=== PATIENT | male | born 1945 | race Caucasian/White ===

== ENCOUNTER → 2018-01-20 07:46 | Outpatient (CLI) | payer MEDICARE, SELFPAY ==
[2018-01-20 08:37] LABS: Hematocrit 45.2 % (41-53); Hemoglobin 15.2 g/dL (13.5-17.5); Mean Corpuscular HGB Conc 33.7 % (30-36); Mean Corpuscular Volume 88.9 fL (80-100); Platelet Count 174 X10^3/uL (150-400); Red Blood Cell Count 5.08 X10^6/uL (4.5-5.9); Red Cell Distribution Width 14.2 % (11.6-14.8); White Blood Cell Count 4.5 X10^3/uL (4.5-11.0)
[2018-01-20 08:59] LABS: Alanine Aminotransferase 34 IU/L (21-72); Albumin 4.2 g/dL (3.5-5.0); Albumin Globulin Ratio 1.4 (1.0-2.8); Alkaline Phosphatase 47 U/L (38-126); Aspartate Aminotransferase 37 IU/L (17-59); BUN Creatinine Ratio 22.7 (6-22); Bilirubin Total 1.2 mg/dL (0.2-1.3); Blood Urea Nitrogen 25 mg/dL (9-20); Calcium 9.4 mg/dL (8.4-10.2); Carbon Dioxide 30 mmol/L (22-32); Chloride 105 mmol/L (98-107); Cholesterol 165 mg/dL (140-199); Estimated Glomerular Filt Rate > 60.0 mL/min (>60); Glucose 87 mg/dL (80-110); HDL Cholesterol 51 mg/dL (40-60); HEMOLYSIS < 15 (0-50); LDL Cholesterol Calculated 88 mg/dL (<100); Potassium 4.4 mmol/L (3.4-5.1); Sodium 144 mmol/L (137-145); Total Protein 7.2 g/dL (6.3-8.2); Triglycerides 130 mg/dL (35-150)
[2018-01-20 09:44] LABS: Vitamin D 25 Hydroxy (D3) 40.4 ng/mL (30.0-100.0)
== END ==
PROVIDERS: PCP Student in an Organized Health Care Education/Training Program; Visit Provider Student in an Organized Health Care Education/Training Program
DX: I25.10 Atherosclerotic heart disease of native coronary artery without angina pectoris (principal); E55.9 Vitamin D deficiency, unspecified; Z79.899 Other long term (current) drug therapy
CPT/HCPCS: 36415; 80053; 80061; 82306; 85027

== ENCOUNTER → 2018-10-16 09:20 | Outpatient (CLI) | payer MEDICARE, SELFPAY ==
--- NOTE | 2018-11-04 08:32 | PM.CARDMON.1 ---
Project Manager Industrial Report Referral & Results Date Patient Seen: 10/16/18 Requesting provider: Mary Grace Flynn Indication: Atrial fibrillation Duration of monitoring (days): 7 Diary information: There 5 patient diary entries associated with sinus rhythm, PACs and PVCs as well as supraventricular tachycardia There 6 patient triggered events associated with sinus rhythm, PACs, PVCs, and SVT Data: Minimum heart rate identified was 38 beats per minute at 02:35 on 10/22/2018 Maximum sinus heart rate was 129 beats per minute at 16:34 on 10/20/2018 Maximum overall heart rate was 187 beats per minute at 14:35 on 10/19/2018 during a 9 beat run of SVT Less than 1% of identified beats or either ventricular supraventricular ectopic in origin Patient at 36 runs of a supraventricular tachycardia the longest lasting 52 seconds at a rate of 146 beats per minute Rare ventricular bigeminy and ventricular trigeminy were noted as well, less than 10 seconds in duration No significant pauses Impression: rare SVT as above Otherwise essentially unremarkable 7 day heart monitor
== END ==
PROVIDERS: PCP Student in an Organized Health Care Education/Training Program; Visit Provider Hospitalist
DX: I48.91 Unspecified atrial fibrillation (principal)
CPT/HCPCS: 0296T; 0298T

== ENCOUNTER → 2019-02-10 14:38 | Outpatient (CLI) | payer MEDICARE, SELFPAY ==
--- NOTE | 2019-02-10 | DI.ECHO.S_ITS ---
[facility] [facility] +---------+ [facility] +---------+ : : [address] : [address] : : : : [id number] : : : : Phone: [phone]+ Echocardiogram Report + + :Name: PAULINA JAMESON Study Date: 02/10/2019 Height: 67 in : :[facility] Weight: 179 lb : : Gender: Male BSA: 1.9 m2 : :: 1945 Age: 73 yrs BP: 110/65 mmHg: :Reason For Study: CAD : : Performed By: Henrique Schulz : :Referring: DILCIA VU : + + Interpretation Summary 1) Normal left ventricular size with low normal systolic function (EF 50-55%). 2) Basal to mid inferolateral wall and basal to mid anterolateral wall are akinetic. The inferior wall is hypokinetic. 3) Normal right ventricular size and function. 4) The left atrium is severely dilated. 5) No significant valvular abnormalities. 6) No prior Echo available for comparison. Procedure: A two-dimensional transthoracic echocardiogram with color flow and Doppler was performed. The study quality was technically adequate. There is no prior echocardiogram noted for this patient. The patient was in normal sinus rhythm during the exam. Left Ventricle: The left ventricle is normal in size. There is normal left ventricular wall thickness. The ejection fraction is estimated to be 50-55%. Basal to mid inferolateral wall and basal to mid anterolateral wall are akinetic. The inferior wall is hypokinetic. Right Ventricle: The right ventricle is normal in size and function. Atria: The left atrium is severely dilated. Right atrial size is normal. The interatrial septum is intact with no evidence for an atrial septal defect. Mitral Valve: The mitral valve is normal in structure and function. There is mild mitral regurgitation. Aortic Valve: The aortic valve is trileaflet. There is discrete nodular thickening of the non- coronary cusp. The aortic valve opens well. There is no aortic valve stenosis. No aortic regurgitation is present. Tricuspid Valve: The tricuspid valve is normal in structure and function. There is mild tricuspid regurgitation. The right ventricular systolic pressure is estimated to be at least 28 mmHg based on an estimated right atrial pressure of 3 mm Hg. Pulmonic Valve: The pulmonic valve is normal in structure and function. There is trace pulmonic regurgitation. Great Vessels: The aortic root is normal size. The dimensions of the ascending aorta are normal. The pulmonary artery is normal size. The IVC is of normal diameter and collapses greater than 50% with a sniff. This suggests a low right atrial pressure of 3 mm Hg. Pericardium/ Pleura There is no pericardial effusion. There is no pleural effusion. MMode/2D Measurements & Calculations LVIDd: 4.4 cm LVOT diam: 2.2 cm LVIDs: 2.9 cm Ao root diam: 3.1 cm FS: 35.3 % Aortic Jxn: 2.4 cm EPSS: 0.94 cm asc Aorta Diam: 3.1 cm IVSd: 0.77 cm Ao Arch Diam (Prox Trans): 2.6 cm LVPWd: 0.52 cm LV field. diameter/BSA (cm/m^2): 2.3 LV sys. diameter/BSA (cm/m^2): 1.5 LA dimension: 3.5 cm RA long axis: 4.6 cm LA A2 area: 29.6 cm2 RA area: 17.0 cm2 LA A4 area: 24.8 cm2 RA vol: 53.2 ml LA length (vol): 5.8 cm RA : 27.6 ml/m2 LA vol: 107.8 ml IVC diam: 1.4 cm LA vol index: 55.9 ml/m2 RVD1 (basal): 3.7 cm RVD2 (mid): 3.9 cm Doppler Measurements & Calculations Ao V2 max: 127.3 cm/sec LVOT Max Ty: 113.3 cm/sec Ao V2 mean: 89.4 cm/sec LV V1 max P.1 mmHg Ao max P.5 mmHg LV V1 VTI: 27.3 cm Ao mean P.5 mmHg LORIE(I,D): 3.3 cm2 Ao V2 VTI: 30.7 cm LORIE(V,D): 3.3 cm2 sev ratio: 0.89 LORIE indexed to BSA (cm^2/m^2): 1.7 MV E max ty: 77.8 cm/sec TR max ty: 248.6 cm/sec MV A max ty: 62.4 cm/sec TR max P.7 mmHg MV E/A: 1.2 PA V2 max: 67.4 cm/sec Med Peak E' Ty: 4.1 cm/sec PA V2 mean: 52.1 cm/sec E/E' med: 18.9 PA mean P.2 mmHg Lat Peak E' Ty: 7.5 cm/sec PA pr(Accel): 24.1 mmHg E/E' lat: 10.3 PA Accel Time: 0.12 sec E/e' average: 14.6 MV dec time: 0.17 sec SVLVOT): 100.5 ml Reading Physician:04:12 PM
== END ==
PROVIDERS: Family Provider Student in an Organized Health Care Education/Training Program; PCP Student in an Organized Health Care Education/Training Program; Visit Provider Internal Medicine Cardiovascular Disease
DX: I08.1 Rheumatic disorders of both mitral and tricuspid valves (principal); I25.10 Atherosclerotic heart disease of native coronary artery without angina pectoris
CPT/HCPCS: 93306

== ENCOUNTER → 2019-02-13 07:36 | Outpatient (CLI) | payer MEDICARE, SELFPAY ==
[2019-02-13 08:14] LABS: Add Manual Diff / Slide Review NO; Basophils Absolute Auto 0 /uL (0-100); Basophils Percent Auto 0.1 % (0-2); Eosinophils Absolute Auto 0 /uL (0-450); Hematocrit 42.7 % (41-53); Hemoglobin 14.4 g/dL (13.5-17.5); Lymphocytes Absolute Auto 1300 /uL (1100-4500); Lymphocytes Percent Auto 16.9 % (25-40); Mean Corpuscular HGB Conc 33.8 % (30-36); Mean Corpuscular Hemoglobin 30.2 PG (26-34); Mean Corpuscular Volume 89.4 fL (80-100); Monocytes Absolute Auto 600 /uL (0-900); Monocytes Percent Auto 7.7 % (3-14); Neutrophils Absolute Auto 6000 /uL (1500-7000); Neutrophils Percent Auto 75.3 % (50-75); Platelet Count 203 X10^3/uL (150-400); Red Blood Cell Count 4.78 X10^6/uL (4.5-5.9); Red Cell Distribution Width 14.2 % (11.6-14.8)
[2019-02-13 08:25] LABS: Blood Urea Nitrogen 23 mg/dL (9-20); Calcium 9.7 mg/dL (8.4-10.2); Carbon Dioxide 28 mmol/L (22-32); Chloride 104 mmol/L (98-107); Cholesterol 152 mg/dL (140-199); Estimated Glomerular Filt Rate > 60.0 mL/min (>60); Glucose 106 mg/dL (80-110); HDL Cholesterol 58 mg/dL (40-60); HEMOLYSIS < 15 (0-50); LDL Cholesterol Calculated 79 mg/dL (<100); Potassium 4.4 mmol/L (3.4-5.1); Sodium 140 mmol/L (137-145); Triglycerides 75 mg/dL (35-150)
== END ==
PROVIDERS: PCP Student in an Organized Health Care Education/Training Program; Visit Provider Internal Medicine Cardiovascular Disease
DX: E78.5 Hyperlipidemia, unspecified (principal); I25.10 Atherosclerotic heart disease of native coronary artery without angina pectoris
CPT/HCPCS: 36415; 80048; 80061; 85025

== ENCOUNTER → 2019-05-30 15:04 | Outpatient (CLI) | payer MEDICARE, SELFPAY ==
[2019-05-30 15:45] LABS: Influenza A - CEPHEID Flu A NEGATIVE (NEGATIVE); Influenza B - CEPHEID Flu B NEGATIVE (NEGATIVE)
== END ==
PROVIDERS: PCP Student in an Organized Health Care Education/Training Program; Visit Provider Physician Assistant
DX: R68.89 Other general symptoms and signs (principal)
CPT/HCPCS: 87502

== ENCOUNTER → 2019-05-30 16:01 | Outpatient (CLI) | payer MEDICARE, SELFPAY ==
--- NOTE | 2019-05-30 16:03 | DI.RAD.S_ITS ---
PROCEDURE: XR CHEST 2V INDICATIONS: cough TECHNIQUE: 2 views of the chest were acquired. COMPARISON: None. FINDINGS: Surgical changes and devices: Sternotomy wires are seen. Mediastinal clips are seen. Lungs and pleura: Lungs are clear. No pleural effusions or pneumothorax. Mediastinum: Tortuous Bones and chest wall: No suspicious bony abnormalities. Age-appropriate bony degenerative changes are seen. Remote right lateral rib fractures are seen. Soft tissues appear unremarkable. IMPRESSION: No acute abnormality is seen. No focal infiltrates. Postoperative and degenerative changes are seen. Dictated by: Chuck Spann M.D. on 05/30/2019 at 15:14 Approved by: Chuck Spann M.D. on 05/30/2019 at 15:15
== END ==
PROVIDERS: PCP Student in an Organized Health Care Education/Training Program; Referring Provider Physician Assistant; Visit Provider Physician Assistant
DX: R05 Cough (principal); R68.89 Other general symptoms and signs
CPT/HCPCS: 71046; 87502

== ENCOUNTER → 2020-03-07 07:01 | Outpatient (CLI) | payer MEDICARE, SELFPAY ==
[2020-03-07 08:57] LABS: Alanine Aminotransferase 22 IU/L (<50); Albumin 3.8 g/dL (3.5-5.0); Albumin Globulin Ratio 1.5 (1.0-2.8); Alkaline Phosphatase 43 U/L (38-126); Aspartate Aminotransferase 29 IU/L (17-59); BUN Creatinine Ratio 17.5 (6-22); Bilirubin Total 1.1 mg/dL (0.2-1.3); Blood Urea Nitrogen 20 mg/dL (9-20); Calcium 9.1 mg/dL (8.4-10.2); Carbon Dioxide 31 mmol/L (22-32); Chloride 104 mmol/L (98-107); Cholesterol 154 mg/dL (140-199); Estimated Glomerular Filt Rate > 60.0 mL/min (>60); Globulin 2.6 g/dL (1.7-4.1); Glucose 85 mg/dL (80-110); HDL Cholesterol 64 mg/dL (40-60); HEMOLYSIS < 15 (0-50); LDL Cholesterol Calculated 56 mg/dL (<100); Potassium 4.5 mmol/L (3.4-5.1); Sodium 137 mmol/L (137-145); Total Protein 6.4 g/dL (6.3-8.2); Triglycerides 168 mg/dL (35-150); Uric Acid 7.8 mg/dL (3.5-8.5)
[2020-03-07 09:28] LABS: Prostate Specific Antigen Scrn 2.38 ng/mL (0.1-4.0)
== END ==
PROVIDERS: PCP Internal Medicine; Referring Provider Internal Medicine; Visit Provider Internal Medicine
DX: E78.2 Mixed hyperlipidemia (principal); I25.10 Atherosclerotic heart disease of native coronary artery without angina pectoris; I48.0 Paroxysmal atrial fibrillation; M10.9 Gout, unspecified; Z12.5 Encounter for screening for malignant neoplasm of prostate
CPT/HCPCS: 36415; 80053; 80061; 84550; G0103

== ENCOUNTER → 2020-04-25 12:37 | Outpatient (CLI) | payer MEDICARE, SELFPAY ==
--- NOTE | 2020-04-25 12:40 | DI.RAD.S_ITS ---
PROCEDURE: FL BARIUM SWALLOW INDICATIONS: Dysphagia COMPARISON: None. FINDINGS: Function: There is normal esophageal peristalsis. There was mild observed spontaneous and elicited gastroesophageal reflux. There is significantly delayed transit of a calibrated barium tablet through the esophagus into the stomach, with persistence of the 13 mm calibrated barium tablet above the area of the distal esophageal stricture 4/5 minutes.. Morphology: Air-contrast images demonstrate normal mucosal morphology. Single contrast views show no esophageal strictures, extrinsic mass effects, or diverticula. Limited images of the stomach demonstrate normal appearance. 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 The 13 mm barium tablet administered at the termination of the procedure persisted over 5 minutes in that position despite adding water to assist in transit of the tablet into the gastric lumen. Mild observed gastroesophageal reflux. Dictated by: Nawaf Avilez M.D. on 04/25/2020 at 14:24 Approved by: Nawaf Avilez M.D. on 04/25/2020 at 14:26
== END ==
PROVIDERS: PCP Internal Medicine; Referring Provider Internal Medicine; Visit Provider Internal Medicine
DX: R13.10 Dysphagia, unspecified (principal); K21.9 Gastro-esophageal reflux disease without esophagitis
CPT/HCPCS: 74220

== ENCOUNTER → 2021-01-31 16:09 | Outpatient (CLI) | payer MEDICARE, SELFPAY ==
[2021-01-31 17:42] LABS: Influenza A - CEPHEID Flu A NEGATIVE (NEGATIVE); Influenza B - CEPHEID Flu B NEGATIVE (NEGATIVE)
[2021-01-31 17:46] LABS: COVID19 -Nasal RAPID POSITIVE (Negative)
== END ==
PROVIDERS: PCP Internal Medicine; Visit Provider Nurse Practitioner Family
DX: U07.1 COVID-19 (principal); J06.9 Acute upper respiratory infection, unspecified
CPT/HCPCS: 87502; 87635

== ENCOUNTER → 2021-01-31 16:43 | Outpatient (CLI) | payer MEDICARE, SELFPAY ==
--- NOTE | 2021-01-31 16:46 | DI.RAD.S_ITS ---
PROCEDURE: XR CHEST 2V INDICATIONS: cough TECHNIQUE: 2 views of the chest were acquired. COMPARISON: [facility], CR, XR CHEST 2V, 05/30/2019, 15:58. FINDINGS: Surgical changes and devices: Median sternotomy. Lungs and pleura: Moderate airspace opacity within the right mid/upper lung. No pleural effusions or pneumothorax. Mediastinum: Mediastinal contours are normal. Heart size is normal. Bones and chest wall: No suspicious bony abnormalities. Soft tissues appear unremarkable. IMPRESSION: Right lung pneumonia. Continued plain film surveillance is recommended to ensure resolution, and to exclude underlying or central malignancy. Dictated by: Mona Castro M.D. on 01/31/2021 at 16:59 Approved by: Mona Castro M.D. on 01/31/2021 at 17:00
== END ==
PROVIDERS: PCP Internal Medicine; Referring Provider Nurse Practitioner Family; Visit Provider Nurse Practitioner Family
DX: U07.1 COVID-19 (principal); J12.82 Pneumonia due to coronavirus disease 2019
CPT/HCPCS: 71046; 87502; 87635

== ENCOUNTER → 2022-03-08 16:16 | Outpatient (CLI) | payer MEDICARE, SELFPAY ==
--- NOTE | 2022-03-08 16:18 | DI.RAD.S_ITS ---
PROCEDURE: XR HIP W PEL IF DONE LT 2V INDICATIONS: left hip pain TECHNIQUE: AP pelvis with lateral view(s) of the left hip(s). COMPARISON: None. FINDINGS: Bones: No fractures or dislocations. Pelvic ring appears intact. No suspicious bony lesions. Moderate bilateral axial joint space narrowing with minimal periarticular osteophyte formation. Degenerative disc and facet disease involves the inferior lumbar spine. Soft tissues: The visualized bowel gas pattern is normal. No suspicious soft tissue calcifications. Left inguinal surgical clips. IMPRESSION: Moderate symmetric hip joint degeneration. Dictated by: Spike Martinez [facility] Interpreted: Shanti Allen MD on 03/08/2022 at 16:33 Transcribed by: JUSTINE on 03/08/2022 at 16:34 Approved by: Shanti Allen M.D. on 03/08/2022 at 17:33
--- NOTE | 2022-03-08 16:18 | DI.RAD.S_ITS ---
PROCEDURE: XR CHEST 2V INDICATIONS: cough TECHNIQUE: 2 views of the chest were acquired. COMPARISON: [facility], CR, XR CHEST 2V, 01/31/2021, 16:41. FINDINGS: Surgical changes and devices: Post median sternotomy. Postsurgical changes of the proximal right humerus unchanged. Surgical anchor involves the left humeral head. Lungs and pleura: Lungs are clear. Interstitium appears prominent similar prior examination. No pleural effusions or pneumothorax. Mediastinum: Mediastinal contours are normal. Heart size is normal. Bones and chest wall: Several healed right posterior lateral rib fractures redemonstrated. No suspicious bony abnormalities. Soft tissues appear unremarkable. IMPRESSION: 1. Interstitial prominence which appears chronic and no acute consolidation is seen. Dictated by: Spike Martinez [facility] Interpreted: Shanti Allen MD on 03/08/2022 at 16:32 Transcribed by: JUSTINE on 03/08/2022 at 16:33 Approved by: Shanti Allen M.D. on 03/08/2022 at 17:33
== END ==
PROVIDERS: PCP Internal Medicine; Referring Provider Internal Medicine; Visit Provider Internal Medicine
DX: R05.9 Cough, unspecified (principal); M25.552 Pain in left hip; M16.12 Unilateral primary osteoarthritis, left hip
CPT/HCPCS: 71046; 73502

== ENCOUNTER → 2022-03-09 06:49 | Outpatient (CLI) | payer MEDICARE, SELFPAY ==
[2022-03-09 09:54] LABS: Alanine Aminotransferase 29 IU/L (<50); Albumin 3.9 g/dL (3.5-5.0); Albumin Globulin Ratio 1.3 (1.0-2.8); Alkaline Phosphatase 51 U/L (38-126); Aspartate Aminotransferase 32 IU/L (17-59); BUN Creatinine Ratio 16.1 (6-22); Bilirubin Total 0.6 mg/dL (0.2-1.3); Blood Urea Nitrogen 19 mg/dL (9-20); Calcium 8.9 mg/dL (8.4-10.2); Carbon Dioxide 26 mmol/L (22-32); Chloride 102 mmol/L (98-107); Estimated Glomerular Filt Rate > 60 mL/min (>60); Glucose 98 mg/dL (80-110); HEMOLYSIS < 15 (0-50); Potassium 4.3 mmol/L (3.4-5.1); Sodium 137 mmol/L (137-145); Total Protein 6.9 g/dL (6.3-8.2)
== END ==
PROVIDERS: PCP Internal Medicine; Referring Provider Internal Medicine; Visit Provider Internal Medicine
DX: I10 Essential (primary) hypertension (principal); M10.9 Gout, unspecified
CPT/HCPCS: 36415; 80053; 84550

== ENCOUNTER → 2022-03-29 07:29 | Outpatient (CLI) | payer MEDICARE, SELFPAY ==
[2022-03-29 08:10] LABS: COVID19 -Nasal RAPID Negative (Negative)
== END ==
PROVIDERS: PCP Internal Medicine; Referring Provider Internal Medicine; Visit Provider Internal Medicine
DX: Z20.822 Contact with and (suspected) exposure to COVID-19 (principal)
CPT/HCPCS: 87635; C9803

== ENCOUNTER → 2022-03-29 07:31 | Outpatient (CLI) | payer MEDICARE, SELFPAY ==
--- NOTE | 2022-04-04 10:56 | PM.PFT.1 ---
Pulmonary Function Test Referral & Results Date Patient Seen: 03/29/22 Requesting provider: Devante Mcgill Results: The spirometry demonstrates an FVC of 3.30 L which is 89% of predicted. The FEV1 was measured at 2.62 L which is 99% of predicted. The FEV1/FVC ratio was 79 which is 110% of predicted. Following the administration of bronchodilator there was a 23% improvement in FEF 25-75%. Lung volumes show an SVC of 3.29 L which is 81% of predicted. The diffusing capacity was measured at 14.75 which is 52% of predicted. No hemoglobin value was provided, so no correction for potential anemia could be made, if appropriate. The maximum voluntary ventilation was normal Interpretation: This study demonstrates probably normal spirometry. There may be a minimal reduction in lung volumes suggesting minimal restrictive lung disease and there is evidence of improvement in small airway flow after bronchodilator although forced spirometry is otherwise normal There is a moderate reduction diffusing capacity suggesting disease at the capillary alveolar level Clinical correlation suggested
== END ==
PROVIDERS: PCP Internal Medicine; Referring Provider Internal Medicine; Visit Provider Internal Medicine
DX: R05.8 Other specified cough (principal); J98.8 Other specified respiratory disorders; Z20.822 Contact with and (suspected) exposure to COVID-19
CPT/HCPCS: 87635; 94060; 94726; 94729; C9803

== ENCOUNTER → 2022-04-03 08:58 | Outpatient (CLI) | payer MEDICARE, SELFPAY | PROVIDERS: PCP Internal Medicine; Referring Provider Physical Medicine & Rehabilitation; Visit Provider Physical Medicine & Rehabilitation | DX: M48.062 Spinal stenosis, lumbar region with neurogenic claudication (principal); Z53.8 Procedure and treatment not carried out for other reasons ==

== ENCOUNTER → 2022-04-12 06:14 | Outpatient (CLI) | payer MEDICARE, SELFPAY ==
--- NOTE | 2022-04-12 06:16 | DI.ECHO.S_ITS ---
[place] [facility]---------+ [facility] +---------+ : : [address] : [address] [address] : : : : [id number] : : : : Phone: [phone]---------+ Echocardiogram Report + + :Name: PAULINA JAMESON Study Date: 04/12/2022 Height: 67 in : :[facility] ReadingLocation: Weight: 176 lb : : Gender: Male BSA: 1.9 m2 : :: 1945 Age: 76 yrs BP: 177/74 mmHg: :Reason For Study: DYSPNEA : :Ordering Physician: ARISTIDES, : :GARRET Harris Performed By: Jess Kenney : :Referring: GARRET IRVING : + + Interpretation Summary Left ventricular ejection fraction is estimated to be 45%. Inferior and inferolateral carrillo are hypokinetic. There is mild mitral regurgitation. There is mild tricuspid regurgitation. The right ventricular systolic pressure is estimated to be at least 27 mmHg based on an estimated right atrial pressure of 3 mm Hg. Procedure: A two-dimensional transthoracic echocardiogram with color flow and Doppler was performed. The study quality was technically adequate. Comparison is made with the echocardiogram of 09/03/2020. The patient was in sinus rhythm with heart rates between 61-70 bpm during the exam. Left Ventricle: The left ventricle is normal in size and wall thickness. Left ventricular ejection fraction is estimated to be 45%. There has been no significant change since the previous exam. Inferior and inferolateral carrillo are hypokinetic. Right Ventricle: The right ventricle is normal size. Right ventricular systolic function is mildly reduced. Atria: The left atrial size is normal. Right atrial size is normal. There is no Doppler evidence for an interatrial shunt. Mitral Valve: The mitral valve is normal in structure and function. There is mild mitral regurgitation. Aortic Valve: The aortic valve is trileaflet. The aortic valve is mildly calcified. There is no aortic valve stenosis. No aortic regurgitation is present. Tricuspid Valve: The tricuspid valve is normal in structure and function. There is mild tricuspid regurgitation. The right ventricular systolic pressure is estimated to be at least 27 mmHg based on an estimated right atrial pressure of 3 mm Hg. Pulmonic Valve: The pulmonic valve leaflets are thin and pliable; valve motion is normal. There is mild pulmonic regurgitation. Great Vessels: The aortic root is normal size. The dimensions of the ascending aorta are normal. The IVC is of normal diameter and collapses greater than 50% with a sniff. This suggests a low right atrial pressure of 3 mm Hg. Pericardium/ Pleura There is no pericardial effusion. There is no pleural effusion. MMode/2D Measurements & Calculations LVIDd: 4.8 cm LVOT diam: 2.2 cm LVIDs: 3.4 cm Ao root diam: 3.2 cm FS: 28.8 % asc Aorta Diam: 3.1 cm EPSS: 1.0 cm Ao Arch Diam (Prox Trans): 2.6 cm IVSd: 0.93 cm LVPWd: 0.76 cm LV field. diameter/BSA (cm/m^2): 2.5 LV sys. diameter/BSA (cm/m^2): 1.8 LA A2 area: 17.7 cm2 RA long axis: 4.8 cm LA A4 area: 17.2 cm2 RA area: 13.8 cm2 LA length (vol): 5.6 cm RA vol: 34.0 ml LA vol: 46.0 ml RA : 17.8 ml/m2 LA vol index: 24.0 ml/m2 IVC diam: 1.3 cm RVD1 (basal): 3.8 cm RVD2 (mid): 3.2 cm TAPSE: 1.5 cm Doppler Measurements & Calculations Ao V2 max: 106.0 cm/sec LVOT Max Ty: 91.5 cm/sec Ao V2 mean: 77.9 cm/sec LV V1 max P.3 mmHg Ao max P.6 mmHg LV V1 VTI: 19.6 cm Ao mean P.7 mmHg LORIE(I,D): 3.3 cm2 Ao V2 VTI: 23.4 cm LORIE(V,D): 3.4 cm2 sev ratio: 0.84 LORIE indexed to BSA (cm^2/m^2): 1.7 MV E max ty: 66.1 cm/sec TR max ty: 242.7 cm/sec MV A max ty: 68.2 cm/sec TR max P.6 mmHg MV E/A: 0.97 PA V2 max: 94.0 cm/sec Med Peak E' Ty: 7.2 cm/sec PA V2 mean: 71.4 cm/sec E/E' med: 9.2 PA mean P.2 mmHg Lat Peak E' Ty: 8.7 cm/sec PA pr(Accel): 46.5 mmHg E/E' lat: 7.6 E/e' average: 8.4 MV dec time: 0.24 sec SV(LVOT): 77.0 ml Reading Physician:10:08 AM
== END ==
PROVIDERS: PCP Internal Medicine; Referring Provider Internal Medicine; Visit Provider Internal Medicine
DX: I08.1 Rheumatic disorders of both mitral and tricuspid valves (principal); R06.00 Dyspnea, unspecified
CPT/HCPCS: 93306

== ENCOUNTER 2022-05-13 16:23 | Emergency (ER) | payer MEDICARE, SELFPAY ==
[2022-05-13 16:45] VITALS: BP 140/72; PULSE 69; RESP 18; TEMP 37.1; O2SAT 96; BMI 27.3
--- NOTE | 2022-05-13 16:55 | DI.RAD.S_ITS ---
PROCEDURE: XR CHEST 1V INDICATIONS: chest pain TECHNIQUE: One view of the chest was acquired. COMPARISON: [facility], CT, CT ANGIO CHEST PE, 09/02/2020, 19:37. [facility], CR, XR CHEST 2V, 01/31/2021, 16:41. [facility], CR, XR CHEST 2V, 03/08/2022, 16:19. FINDINGS: Surgical changes and devices: Right proximal humeral hardware is partially seen. Left shoulder postoperative change is also seen. Sternotomy wires are seen. Lungs and pleura: An incomplete inspiratory result is noted, causing a crowded appearance to the lung markings. No focal infiltrates are seen. No pneumothorax or significant pleural effusions are seen. Mediastinum: The cardiac contours are within normal limits. The aorta demonstrates calcification and tortuosity. Bones and chest wall: No suspicious bony lesions. Age-appropriate bony degenerative changes are seen. Overlying soft tissues appear unremarkable. IMPRESSION: Limited chest radiograph, without an acute abnormality seen. Postoperative and degenerative changes are seen. Dictated by: Chuck Spann M.D. on 05/13/2022 at 16:34 Approved by: Chuck Spann M.D. on 05/13/2022 at 16:37
[2022-05-13 17:44] LABS: Add Manual Diff / Slide Review NO; Basophils Absolute Auto 100 /uL (0-100); Basophils Percent Auto 0.8 % (0-2); Eosinophils Absolute Auto 200 /uL (0-450); Eosinophils Percent Auto 1.9 % (2-4); Hematocrit 42.7 % (41-53); Hemoglobin 14.4 g/dL (13.5-17.5); Lymphocytes Absolute Auto 2700 /uL (1100-4500); Lymphocytes Percent Auto 30.4 % (25-40); Mean Corpuscular HGB Conc 33.8 % (30-36); Mean Corpuscular Hemoglobin 29.7 PG (26-34); Mean Corpuscular Volume 87.7 fL (80-100); Monocytes Absolute Auto 1000 /uL (0-900); Monocytes Percent Auto 11.3 % (3-14); Neutrophils Absolute Auto 5000 /uL (1500-7000); Neutrophils Percent Auto 55.6 % (50-75); Platelet Count 180 X10^3/uL (150-400); Red Blood Cell Count 4.87 X10^6/uL (4.5-5.9); Red Cell Distribution Width 14.3 % (11.6-14.8); White Blood Cell Count 8.9 X10^3/uL (4.5-11.0)
[2022-05-13 17:49] LABS: Prothrombin Time 11.5 SECONDS (10.1-12.7)
[2022-05-13 17:52] LABS: PTT Partial Thromboplastin Tim 28 SECONDS (26-36)
[2022-05-13 17:53] LABS: Alanine Aminotransferase 28 IU/L (<50); Alkaline Phosphatase 51 U/L (38-126); Aspartate Aminotransferase 32 IU/L (17-59); BUN Creatinine Ratio 20.5 (6-22); Bilirubin Total 0.8 mg/dL (0.2-1.3); Blood Urea Nitrogen 25 mg/dL (9-20); Calcium 8.9 mg/dL (8.4-10.2); Carbon Dioxide 25 mmol/L (22-32); Chloride 104 mmol/L (98-107); Creatine Kinase 246 U/L (55-170); Estimated Glomerular Filt Rate > 60 mL/min (>60); Glucose 95 mg/dL (80-110); HEMOLYSIS < 15 (0-50); Lipase 97 U/L (23-300); Magnesium 1.9 mg/dL (1.6-2.3); Potassium 3.9 mmol/L (3.4-5.1); Sodium 139 mmol/L (137-145); Total Protein 7.3 g/dL (6.3-8.2)
--- NOTE | 2022-05-13 18:03 | ED.ARRPALP ---
HPI - Arrhythmia/Palpitations General Chief Complaint: Arrhythmia/Palpitations Stated Complaint: High blood pressure Time Seen by Provider: 05/13/22 17:30 Source: patient Mode of arrival: Family Vehicle History of Present Illness HPI narrative: 76-year-old gentleman with a history of paroxysmal atrial fibrillation without any episodes of abnormalities for the last 2 years, gout, coronary artery disease, reflux and hyperlipidemia presents with couple of episodes of paroxysmal atrial fibrillation noticed today. He notes that he was seen at urgent care last week diagnosed with gout and treated with colchicine and prednisone both of which were completed yesterday and did resolve his gout symptoms. Began noticing the symptoms of atrial fibrillation today. With both episodes that he had they lasted minutes and were resolved with Valsalva maneuver. When he was having the rapid heart rate noted that he was weak, somewhat dizzy but not complaining of chest pain or dyspnea. He notes that he has not recently had any fevers, cough, chills, chest pain, abdominal pain, vomiting, diarrhea. He is had no other changes in medications aside from the brief course of colchicine and prednisone. Related Data Home Medications Medication Instructions Recorded Confirmed aspirin 81 mg chewable tablet 81 mg PO DAILY 01/17/18 04/05/22 nitroglycerin 0.4 mg sublingual 0.4 mg sublingual Q5-15M PRN 01/17/18 04/05/22 tablet pantoprazole 40 mg tablet,delayed 40 mg PO DAILY 01/17/18 04/05/22 release (Protonix) Previous Rx's Medication Instructions Recorded albuterol sulfate 90 mcg/actuation 2 puff inhalation Q4-6H PRN 12/31/17 aerosol inhaler shortness of breath #8.5 grams rosuvastatin 40 mg tablet 40 mg PO DAILY #90 tabs 03/01/20 allopurinol 100 mg tablet 100 mg PO DAILY #90 tabs 03/08/22 fluticasone propionate 50 2 spray intranasal BEDTIME #48 04/05/22 mcg/actuation nasal grams spray,suspension Allergies Allergy/AdvReac Type Severity Reaction Status Date / Time Penicillins Allergy almost Verified 05/13/22 17:09 at 2 years old hydromorphone AdvReac Dizziness Verified 05/13/22 17:09 Sulfa (Sulfonamide AdvReac rash Verified 05/13/22 17:09 Antibiotics) Review of Systems Review of Systems Narrative: Remainder of complete review of systems is otherwise unremarkable except for that included in the HPI. Patient History Medical History Coronary artery disease COVID-19 Essential hypertension GERD with stricture History of DVT (deep vein thrombosis) (~09/2015) Mixed hyperlipidemia Palpitations Paroxysmal atrial fibrillation Surgical History Hx of shoulder surgery (05/2010) Status post aorto-coronary artery bypass graft (~11/2015) Family History Father Alzheimer's disease Mother No problems noted. Social History marital status: household members: spouse occupational status: previously employed Smoking Status: Never smoker alcohol intake: current substance use type: does not use Smoking Status: Never smoker alcohol intake frequency: 0-2 drinks per day Substance Use Type: does not use Exam Initial Vital Signs Initial Vital Signs: Vital Signs Temperature 98.8 F 05/13/22 16:45 Pulse Rate 69 05/13/22 16:45 Respiratory Rate 18 05/13/22 16:45 Blood Pressure 140/72 05/13/22 16:45 Pulse Oximetry 96 05/13/22 16:45 Oxygen Delivery Method 05/13/22 16:45 General: Healthy appearing, in no acute distress. Able to give a complete and coherent history. Well-nourished well-developed HEENT: Moist mucous membranes, normal sclera with reactive pupils, Neck: No JVD, supple Respiratory: Lungs are clear to auscultation, no wheezing no rales no rhonchi. Full and symmetrical air movement Cardiac: Regular rate and rhythm no murmurs no bruits Abdomen: Soft, nontender, good bowel tones, no flank pain Skin: Warm and dry, no rashes Neurologic: Grossly neurologically intact with no obvious asymmetries or abnormalities Extremities: No trauma, well perfused, no lower extremity edema Psych: Cooperative, appropriate insight and affect Course Orders Ordered: ED Orders 05/13/22 16:55 XR chest 1V Stat COVID19 -Nasal RAPID/Pre-Proc Stat EKG-12 Lead Stat 01/15/23 17:19 Complete Blood Count AUTO DIFF Stat Comprehensive Metabolic Panel Stat Lipase Stat Magnesium Stat Partial Thromboplastin Time Stat Prothrombin Time INR Stat Troponin & CK Cardiac Panel Stat Discontinued Medications Aspirin (Aspirin 81 Mg Chew Tab) 324 mg PO NOW ONE Stop: 05/13/22 16:56 Last Admin: 05/13/22 17:56 Dose: Not Given Documented By: ALBERTINA Vital Signs Vital signs: Vital Signs - 8 hr 05/13/22 16:45 Temperature 98.8 F Pulse Rate 69 Respiratory Rate 18 Blood Pressure 140/72 Pulse Oximetry 96 Oxygen Delivery Method Room Air MDM - Arrhythmia/Palpitations Lab Data Result diagrams: 05/13/22 17:19 05/13/22 17:19 Labs: Lab Results 05/13/22 05/13/22 05/13/22 Range/Units 17:19 17:19 17:19 WBC 8.9 (4.5-11.0) X10^3/uL RBC 4.87 (4.5-5.9) X10^6/uL Hgb 14.4 (13.5-17.5) g/dL Hct 42.7 (41-53) % MCV 87.7 (80-100) fL MCH 29.7 (26-34) PG MCHC 33.8 (30-36) % RDW 14.3 (11.6-14.8) % Plt Count 180 (150-400) X10^3/uL Neut % (Auto) 55.6 (50-75) % Lymph % (Auto) 30.4 (25-40) % Island % (Auto) 11.3 (3-14) % Eos % (Auto) 1.9 L (2-4) % Baso % (Auto) 0.8 (0-2) % Neut # (Auto) 5000 (0618-1717) /uL Lymph # (Auto) 2700 (3826-3748) /uL Island # (Auto) 1000 H (0-900) /uL Eos # (Auto) 200 (0-450) /uL Baso # (Auto) 100 (0-100) /uL PT 11.5 (10.1-12.7) SECONDS INR 1.0 (0.9-1.3) APTT 28 (26-36) SECONDS Sodium 139 (137-145) mmol/L Potassium 3.9 (3.4-5.1) mmol/L Chloride 104 (98-107) mmol/L Carbon Dioxide 25 (22-32) mmol/L BUN 25 H (9-20) mg/dL Creatinine 1.22 (0.66-1.25) mg/dL Estimated GFR > 60 (>60) mL/min BUN/Creatinine Ratio 20.5 (6-22) Glucose 95 (80-110) mg/dL Calcium 8.9 (8.4-10.2) mg/dL Magnesium 1.9 (1.6-2.3) mg/dL Total Bilirubin 0.8 (0.2-1.3) mg/dL AST 32 (17-59) IU/L ALT 28 (<50) IU/L Alkaline Phosphatase 51 (38-126) U/L Total Creatine Kinase 246 H (55-170) U/L Total Protein 7.3 (6.3-8.2) g/dL Lipase 97 (23-300) U/L Imaging Data Chest x-ray: Radiologist's Impresson: No acute disease and no congestive heart failure ECG Data Interpretation: Sinus rhythm at a rate of 72, right bundle branch block. No acute ischemic changes MDM Narrative Medical decision making narrative: CC: 2 episodes of paroxysmal atrial fibrillation that are self resolved with Valsalva maneuver. Has a history of paroxysmal atrial fibrillation. 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 Does have a chads 5 score and would be an appropriate anticoagulation patient however he is had significant upper GI bleeding in the past decisions have been made to not continue with anticoagulation. He currently is taking an aspirin every other day. He is not having pain or dyspnea Complicating co-morbidities: Known coronary artery disease, prior GI bleeding, paroxysmal atrial fibrillation Corroborating data: Data collected from: patient, son Medical records reviewed: Primary care notes, prior cardiology notes and prior hospital admissions Differential considered: SVT, acute coronary syndrome, atrial fibrillation, PE, pulmonary abnormalities, congestive heart failure Exam documented above, pertinent findings include: Normal exam, appropriate blood pressure, sinus rhythm Lab Test results independently reviewed as above. Pertinent findings: CBC within normal limits with no significant sign of infection or significant anemia Chemistries are unremarkable with stable creatinine, CK MB relative index and troponin are both unremarkable Independently reviewed EKG as above Imaging studies independently reviewed today's chest x-ray is unremarkable Treatments: Patient was in atrial fibrillation in the triage room and did his own Valsalva maneuver with conversion to sinus rhythm. Labs were drawn. Re-evaluations: Patient has remained in sinus rhythm for the last 2 hours Discussion: Along with patient and his son we talked about reasons for his 2 episodes of paroxysmal atrial fibrillation that were self converted with Valsalva maneuver today. There is no evidence of infection, significant anemia, it is a bit suspicious that he completed both colchicine and prednisone yesterday. We discussed the possibility that it may be the prednisone that has caused these episodes. Given the fact that they last, at most, minutes and he is able to self convert along with fact that he easily recognizes when he is in atrial fibrillation we talked about options. With shared decision-making we chose to not moved forward hospitalization with further observation, we chose to not restart metoprolol giving normal blood pressure and heart rate currently and we chose to not restart anticoagulants given his prior history of bleeding. Did encourage him to return to the emergency department if he has an episode of AFib that is not able to be converted with Valsalva maneuver. Questions were answered and patient is pleased with plans for discharge home Diagnosis: Paroxysmal AFib: Uncertain prognosis, threat to life and limb Disposition: see below, along with detailed discharge instructions that have been reviewed with patient as well as indications for ED re-evaluation and additional outpatient follow up Discharge Plan Departure Patient Disposition: Home Clinical Impression: Paroxysmal atrial fibrillation Instructions: DI for Atrial Fibrillation Activity Restrictions/Additional Instructions: Thank you for coming in today I suspect that these 2 episodes of paroxysmal atrial fibrillation are related to your recent course of prednisone to treat your gout. The fact that they were both short-lived and converted with Valsalva maneuver is encouraging. Your blood work, EKG and chest x-ray were all reassuring. There is no evidence of additional explanation for these episodes of atrial fibrillation or reason for hospitalization at this time. We discussed restarting metoprolol that you have been on previously however, if we presumed that the prednisone is causing the problem and the prednisone was stopped yesterday, it is likely that you are not going to have significant issues with atrial fibrillation going forward. Please schedule follow-up appointment with Dr. Mcgill this week If you find that you are getting worse, have recurrent atrial fibrillation that can not be converted or develop any chest pain or shortness of breath do need to come back to the emergency department Prescriptions: No Action albuterol sulfate 90 mcg/actuation HFA aerosol inhaler 2 puff INHALATION Q4-6H PRN (Reason: shortness of breath) Qty: 8.5 1RF pantoprazole [Protonix] 40 mg tablet,delayed release (DR/EC) 40 mg PO DAILY nitroglycerin 0.4 mg tablet, sublingual 0.4 mg SL Q5-15M PRN aspirin 81 mg tablet,chewable 81 mg PO DAILY rosuvastatin 40 mg tablet 40 mg PO DAILY Qty: 90 3RF fluticasone propionate 50 mcg/actuation spray,suspension 2 spray NASAL BEDTIME Qty: 48 3RF Rx Instructions: administer into each nostril allopurinol 100 mg tablet 100 mg PO DAILY Qty: 90 1RF Referrals: Devante Mcgill MD [Primary Care Provider] - Stand Alone Forms: Patient Portal/API
[2022-05-13 18:05] LABS: Troponin I 0.015 ng/mL (0.01-0.034)
[2022-05-13 18:08] LABS: CKMB % Relative Index 1.6 % (1.5-5.0); Creatine Kinase MB 3.93 ng/mL (<2.37)
[2022-05-13 21:49] LABS: Albumin Globulin Ratio 1.2 (1.0-2.8); Globulin 3.3 g/dL (1.7-4.1)
== END 2022-05-13 18:57 | disposition home or self-care (01) ==
PROVIDERS: Emergency Medicine; Emergency Provider Emergency Medicine; PCP Internal Medicine
DX: I48.20 Chronic atrial fibrillation, unspecified (principal); Z79.82 Long term (current) use of aspirin
CPT/HCPCS: 36415; 71045; 80053; 82550; 82553; 83690; 83735; 84484; 85025; 85610; 85730; 93005; 99283; 99284

== ENCOUNTER → 2022-06-01 12:33 | Outpatient (CLI) | payer MEDICARE, SELFPAY ==
--- NOTE | 2022-06-01 | DI.CT.S_ITS ---
PROCEDURE: CT LUMBAR SPINE WO CON INDICATIONS: Radiculopathy, lumbar region TECHNIQUE: Noncontrast 3 mm thick sections acquired from the T12 level to the sacrum. Sagittal and coronal reformats were constructed. For radiation dose reduction, the following was used: automated exposure control. COMPARISON: None. FINDINGS: Image quality: Excellent. Bones: There is normal bony alignment. No acute vertebral body compression fractures. No suspicious lytic or blastic bony lesions. No pars defects. T12-L1: No significant disc bulge. The foramina and central canal are patent. L1-L2: Diffuse disc bulge/disc osteophytes and facet hypertrophy causes mild bilateral foraminal stenosis. The central canal is patent. L2-L3: Diffuse disc bulge/disc osteophytes and facet hypertrophy cause mild bilateral foraminal stenosis. The central canal is patent. L3-L4: Diffuse disc bulge/disc osteophytes and facet hypertrophy cause mild bilateral foraminal stenosis. The central canal is patent. L4-L5: Facet arthrosis with grade 1 anterolisthesis. Diffuse disc bulge/disc osteophytes and facet hypertrophy cause mild bilateral foraminal stenosis. The central canal has moderate stenosis. L5-S1: Diffuse disc bulge/disc osteophytes and facet hypertrophy cause moderate bilateral foraminal stenosis. The central canal has moderate stenosis. Soft tissues: No retroperitoneal masses or hematomas. Visualized aorta is normal in caliber. There is diverticulosis without evidence of diverticulitis. IMPRESSION: 1. Multilevel lumbar spondylosis causing foraminal stenosis as detailed above. 2. Moderate central canal stenosis at L4-5 and L5-S1. Dictated by: Denzel Mujica M.D. on 06/01/2022 at 14:20 Approved by: Denzel Mujica M.D. on 06/01/2022 at 14:26
== END ==
PROVIDERS: PCP Internal Medicine; Referring Provider Physical Medicine & Rehabilitation; Visit Provider Physical Medicine & Rehabilitation
DX: M47.26 Other spondylosis with radiculopathy, lumbar region (principal); M47.27 Other spondylosis with radiculopathy, lumbosacral region; M48.061 Spinal stenosis, lumbar region without neurogenic claudication; M48.07 Spinal stenosis, lumbosacral region
CPT/HCPCS: 72131

== ENCOUNTER → 2022-08-29 09:51 | Outpatient (CLI) | payer MEDICARE, SELFPAY ==
--- NOTE | 2022-08-29 09:54 | DI.CT.S_ITS ---
PROCEDURE: CT CHEST HIGH RESOLUTION INDICATIONS: Bronchiectasis, uncomplicated TECHNIQUE: Noncontrast 1.0 and 5.0 mm thick contiguous axial sections from the pulmonary apex to the posterior costophrenic angles, with 7 mm thick coronal and sagittal MIP reformats. 1 mm thick dynamic expiratory images acquired through the upper, mid, and lower lungs. 1.0 mm thick axial sections acquired from the viktor to the posterior costophrenic angles in the prone end-inspiration position. For radiation dose reduction, the following was used: automated exposure control, adjustment of mA and/or kV according to patient size. COMPARISON: [facility], CT, CT ANGIO CHEST PE, 09/02/2020, 19:37. FINDINGS: Lungs: Peripheral reticular opacities present bilaterally with an apical-basal gradient. Traction bronchiectasis and mild honeycombing also present. No substantial ground-glass opacity or diffuse micronodularity. Findings are worsened compared to the prior exam allowing for differences in exam technique. No obvious or severe air trapping identified on dynamic images. Pleura: No pleural effusions or pneumothorax. Mediastinum: Multivessel coronary artery calcifications and/or stents. No pericardial effusion. Thoracic aorta and central pulmonary arteries are normal in size. Esophagus is normal in caliber. Bones and chest wall: No suspicious bony lesions. No vertebral body compression fractures. Prior median sternotomy. Abdomen: Visualized upper abdominal solid organs and bowel loops appear normal. IMPRESSION: Findings of interstitial lung disease consistent with a UIP pattern. Dictated by: Anoop Carlisle M.D. on 08/29/2022 at 11:28 Approved by: Anoop Carlisle M.D. on 08/29/2022 at 11:55
== END ==
PROVIDERS: PCP Internal Medicine; Referring Provider Internal Medicine Pulmonary Disease; Visit Provider Internal Medicine Pulmonary Disease
DX: J84.9 Interstitial pulmonary disease, unspecified (principal); J47.9 Bronchiectasis, uncomplicated; J84.89 Other specified interstitial pulmonary diseases
CPT/HCPCS: 71250

== ENCOUNTER 2022-11-20 12:50 | Day surgery (SDC) | payer MEDICARE, SELFPAY ==
[2022-11-20 13:54] VITALS: BP 132/71; PULSE 62; RESP 16; TEMP 36.4; O2SAT 95; BMI 26.6
[2022-11-20] MEDS: LACTATED RINGERS 1,000 ML 150 ML IV (14:16)
[2022-11-20] MEDS: FLEETS ENEMA 1 EACH PR (14:16)
--- NOTE | 2022-11-20 15:30 | PM.PREOP ---
Pre-operative Note Interval Note History & Physical reviewed/Exam performed by Physician: Yes Changes to H&P: No
[2022-11-20 15:56] VITALS: BP 103/68; PULSE 74; RESP 169; TEMP 36.6; O2SAT 94
[2022-11-20 16:01] VITALS: BP 101/67; PULSE 62; RESP 14; O2SAT 94
--- NOTE | 2022-11-20 16:05 | PM.OP.1 ---
Operative Date/Time/Diagnoses Date of procedure: 11/20/22 Time of procedure: 16:05 Pre-op diagnosis: Internal hemorrhoids Post-op diagnosis: same Procedure & Clinicians Procedure: Hemorrhoidal banding x3 Same procedure as scheduled: Yes Indications: Symptomatic grade 2 internal hemorrhoids not responding to conservative therapy Surgeon: Nigel Valdovinos Anesthesia Type: General Operative Notes Findings: Grade 2 internal hemorrhoids left lateral right posterior and right anterior Specimen(s): none sent Estimated Blood Loss (mL): 0 Procedure in detail: Patient was brought to the endoscopy room and placed in the left lateral decubitus position. Sedation was induced by anesthesia. The anoscope was placed into the rectum. This demonstrated grade 2 internal hemorrhoids involving the left lateral right anterior and right posterior pedicles. Each pedicle was grasped and doubly ligated with bands. He tolerated the procedure well was transferred to recovery in stable condition. Post-operative Disposition: same day surgery
[2022-11-20 16:06] VITALS: BP 103/73; PULSE 63; RESP 14; O2SAT 94
[2022-11-20 16:16] VITALS: BP 106/75; PULSE 86; RESP 16; TEMP 36.6; O2SAT 94
[2022-11-20 16:28] VITALS: BP 124/78; PULSE 61; RESP 18; TEMP 36.3; O2SAT 97
[2022-11-20] MEDS: OXYCODONE/ACETAMINOPHEN 5/325 TABLET 1 TAB PO (16:35)
== END 2022-11-20 16:40 | disposition home or self-care (01) ==
PROVIDERS: PCP Internal Medicine; Referring Provider Surgery; Visit Provider Surgery
PROC: 0DJD8ZZ Inspection of Lower Intestinal Tract, Via Natural or Artificial Opening Endoscopic (ICD-10-PCS; CPT 45378; principal; 2022-11-20 14:00)
DX: K64.1 Second degree hemorrhoids (principal)
CPT/HCPCS: 46221

== ENCOUNTER 2023-11-09 08:49 | Emergency (ER) | payer MEDICARE, SELFPAY ==
[2023-11-09 08:53] VITALS: BP 131/80; PULSE 69; RESP 16; TEMP 36.6; O2SAT 95; BMI 27.3
--- NOTE | 2023-11-09 09:10 | EKG_ITS ---
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
--- NOTE | 2023-11-09 09:10 | DI.RAD.S_ITS ---
PROCEDURE: XR CHEST 1V INDICATIONS: eval for PNA TECHNIQUE: One view of the chest was acquired. COMPARISON: [facility], CR, XR CHEST 1V, 05/13/2022, 17:02. FINDINGS: Surgical changes and devices: Median sternotomy wires and surgical clips are seen. Postsurgical changes are seen in right shoulder. Lungs and pleura: Mild pulmonary vascular congestion is noted. No pleural effusions or pneumothorax. Mediastinum: Mediastinal contours appear normal. Heart size is normal. Bones and chest wall: No suspicious bony lesions. Old healed right posterior lateral 6 and 7th rib fracture is again seen. Overlying soft tissues appear unremarkable. IMPRESSION: Mild pulmonary vascular congestion. No definite focal infiltrate. No pleural effusion or pneumothorax. Dictated by: Mirza Condon M.D. on 11/09/2023 at 9:50 Approved by: Mirza Condon M.D. on 11/09/2023 at 9:51
--- NOTE | 2023-11-09 09:10 | ED_ITS ---
HPI - General Adult General Chief complaint: Upper Respiratory Symptoms Stated complaint: mucus problem, weakness Time Seen by Provider: 11/09/23 08:51 Source: patient Mode of arrival: Ambulatory Limitations: no limitations History of Present Illness HPI narrative: Patient is a 78-year-old male who initially went to the walk-in clinic because of persistent chest congestion. He stated that the symptom has been going on for the past month. He has been in the walk-in clinic in the past. Has been on steroids. Has tried zuse-jnh-[id number] decongestants and anti mucous medications without improvement. He denies fevers. No chest pain. He states that the coughing mostly occurs in the evening. He did have COVID 2 years ago. He did not test himself again when these symptoms started 1 month ago. He went to the walk-in clinic today because of continued symptoms. He told the clinic that he has been having episodes of what he thinks is atrial fibrillatio. He states he does have a history of AFib. He was not on anticoagulation. Has not had any problems with AFib in the past 4 years. He states he was able to get the AFib to stop by squatting down and holding his breath. He was not having the AFib sy mptoms today. Related Data Home Medications Medication Instructions Recorded Confirmed nitroglycerin 0.4 mg sublingual 0.4 mg sublingual Q5-15M PRN Angina 01/17/18 11/09/23 tablet omeprazole 20 mg capsule,delayed 20 mg PO DAILY 10/05/22 11/09/23 release Previous Rx's Medication Instructions Recorded albuterol sulfate 90 mcg/actuation 2 puff inhalation Q4-6H PRN 12/31/17 aerosol inhaler shortness of breath #8.5 grams gabapentin 300 mg capsule 300 mg PO BEDTIME #90 caps 06/04/22 allopurinol 100 mg tablet 100 mg PO DAILY #90 tabs 09/10/22 fluticasone propionate 50 2 spray intranasal BEDTIME #48 10/05/22 mcg/actuation nasal grams spray,suspension docusate sodium 100 mg capsule 100 mg PO BID #30 caps 11/20/22 (Colace) wheat dextrin 3 gram/3.8 gram oral 3 g PO BID #144 grams 11/20/22 powder (Benefiber Sugar Free (dextrin)) Allergies Allergy/AdvReac Type Severity Reaction Status Date / Time Penicillins Allergy almost Verified 11/09/23 08:21 at 2 years old hydromorphone AdvReac Dizziness Verified 11/09/23 08:21 Sulfa (Sulfonamide AdvReac rash Verified 11/09/23 08:21 Antibiotics) Review of Systems Review of Systems Narrative: Dr Briseno Co-Sign Statement: I was available for consultation during this patient's emergency department visit. This chart is signed by myself for administrative purposes only. I did not have direct contact with this patient during this visit. They were seen independently by the [facility]. Patient History Medical History Interstitial lung disease Diffusion capacity of lung (dl), decreased COVID-19 Essential hypertension Palpitations History of DVT (deep vein thrombosis) (~09/2015) Mixed hyperlipidemia Paroxysmal atrial fibrillation Coronary artery disease GERD with stricture Surgical History Hx of shoulder surgery (05/2010) Status post aorto-coronary artery bypass graft (~11/2015) Family History Father Alzheimer's disease Mother No problems noted. Social History marital status: household members: spouse lives independently: Yes occupational status: previously employed Smoking Status: Never smoker alcohol intake: never substance use type: does not use Smoking Status: Never smoker alcohol intake frequency: 0-2 drinks per day Substance Use Type: does not use Exam Initial Vital Signs Initial Vital Signs: Vital Signs Temperature 97.8 F 11/09/23 08:53 Pulse Rate 69 11/09/23 08:53 Respiratory Rate 16 11/09/23 08:53 Blood Pressure 131/80 11/09/23 08:53 Pulse Oximetry 95 11/09/23 08:53 Oxygen Delivery Method Room Air 11/09/23 08:53 HENMT Head: normal to inspection and normocephalic Resp Effort & Inspection: normal respiratory effort Auscultation: clear to auscultation bilaterally Cardio Rate: regular rate GI Inspection: non-distended Skin General: no rashes or lesions noted Neuro General: patient alert, patient awake and moves all extremities Course Orders Ordered: ED Orders 11/09/23 08:53 Covid-19 + FLU A/B + RSV - PCR Stat 11/09/23 09:10 XR chest 1V Stat EKG-12 Lead Stat Vital Signs Vital signs: Vital Signs - 8 hr 11/09/23 08:53 Temperature 97.8 F Pulse Rate 69 Respiratory Rate 16 Blood Pressure 131/80 Pulse Oximetry 95 Oxygen Delivery Method Room Air Medical Decision Making Lab Data Labs: Lab Results 11/09/23 Range/Units 09:15 SARS-CoV-2 (PCR) Negative (Negative) Influenza A (RT-PCR) Flu a negative (NEGATIVE) Influenza B (RT-PCR) Flu b negative (NEGATIVE) RSV (PCR) Negative (Negative) Imaging Data Chest x-ray: Radiologist's Impression: PROCEDURE: XR CHEST 1V INDICATIONS: eval for PNA TECHNIQUE: One view of the chest was acquired. COMPARISON: Located Within [facility], , XR CHEST 1V, 05/13/2022, 17:02. FINDINGS: Surgical changes and devices: Median sternotomy wires and surgical clips are seen. Postsurgical changes are seen in right shoulder. Lungs and pleura: Mild pulmonary vascular congestion is noted. No pleural effusions or pneumothorax. Mediastinum: Mediastinal contours appear normal. Heart size is normal. Bones and chest wall: No suspicious bony lesions. Old healed right posterior lateral 6 and 7th rib fracture is again seen. Overlying soft tissues appear unremarkable. IMPRESSION: Mild pulmonary vascular congestion. No definite focal infiltrate. No pleural effusion or pneumothorax. ECG Data Attestation: I personally reviewed and interpreted this ECG as follows: Interpretation: Sinus rhythm Ventricular rate is 66 First-degree AV block ND interval 210 milliseconds Normal axis Normal QRS No ST T wave changes MDM Narrative Medical decision making narrative: Chest x-ray shows no signs of pneumonia. His COVID flu and RSV tests are negative. He was clear lungs. Is not hypoxic. He was in sinus rhythm here in the ER. 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 It seems that he was always able to get back into a normal rhythm again at home with Valsalva maneuvers. Patient has had a chronic cough for the past month. There was no indication for antibiotics. He was not on lisinopril. He was not in acute heart failure. No indication for antibiotics. He was also already tried a course of steroids. Recommended that he talk with his primary doctor about potential further evaluation to include pulmonary function testing or going to see a loader demolder. We discussed [id number]-[id number] medications that he can try. He was given return precautions. He expressed understanding and agreement. Discharge Plan Departure Patient Disposition: Home Clinical Impression: Cough Instructions: Cough (Alternative Therapy), Cough Activity Restrictions/Additional Instructions: Continue to take all of your medications as directed. I recommend that you contact your primary doctor's office for follow-up to discuss the indications for a Holter monitor because of your palpitations and also to discuss potential further workup of your cough. Return to the emergency department for new symptoms. Prescriptions: No Action albuterol sulfate 90 mcg/actuation HFA aerosol inhaler 2 puff INHALATION Q4-6H PRN (Reason: shortness of breath) Qty: 8.5 1RF nitroglycerin 0.4 mg tablet, sublingual 0.4 mg SL Q5-15M PRN (Reason: Angina) Patient Comments: never taken allopurinol 100 mg tablet 100 mg PO DAILY Qty: 90 1RF fluticasone propionate 50 mcg/actuation spray,suspension 2 spray NASAL BEDTIME Qty: 48 3RF Rx Instructions: administer into each nostril omeprazole 20 mg capsule,delayed release(DR/EC) 20 mg PO DAILY gabapentin 300 mg capsule 300 mg PO BEDTIME Qty: 90 3RF Benefiber Sugar Free (dextrin) 3 gram/3.8 gram powder 3 g PO BID Qty: 144 0RF Rx Instructions: mix into at least 4 oz water or juice before administering docusate sodium [Colace] 100 mg capsule 100 mg PO BID Qty: 30 0RF Referrals: Devante Mcgill MD [Primary Care Provider] - Stand Alone Forms: Patient Portal/API
[2023-11-09 09:56] LABS: Influenza A - CEPHEID Flu A NEGATIVE (NEGATIVE); Influenza B - CEPHEID Flu B NEGATIVE (NEGATIVE); Respiratory Syncytial Virus Negative (Negative)
[2023-11-09 10:01] LABS: COVID-19 CEPHEID 4-PLEX PCR Negative (Negative)
[2023-11-09 10:45] VITALS: BP 137/71; PULSE 73; RESP 16; TEMP 36.4; O2SAT 96
== END 2023-11-09 10:46 | disposition home or self-care (01) ==
PROVIDERS: Emergency Provider Emergency Medicine; PCP Internal Medicine
DX: R05.9 Cough, unspecified (principal); R00.2 Palpitations
CPT/HCPCS: 0241U; 71045; 93005; 99283; 99284

== ENCOUNTER 2025-04-05 01:11 | Emergency (ER) | payer OTHER, SELFPAY ==
[2025-04-05 01:19] VITALS: BP 115/64; PULSE 61; RESP 18; TEMP 36.5; O2SAT 97; BMI 27.3
--- NOTE | 2025-04-05 01:25 | DI.RAD.S_ITS ---
PROCEDURE: XR KNEE LT 3V INDICATIONS: Knee pain after kneeling TECHNIQUE: 3 views of the knee were acquired. COMPARISON: None. FINDINGS: Bones: No fractures or dislocations. No suspicious bony lesions. Tricompartmental joint space narrowing with associated osteophytosis. Soft tissues: No joint effusion. No suspicious soft tissue calcifications. IMPRESSION: No acute bony abnormality or significant effusion. Dictated by: Jose Pan M.D. on 04/05/2025 at 1:43 Approved by: Jose Pan M.D. on 04/05/2025 at 1:44
--- NOTE | 2025-04-05 03:04 | ED.LOWEXIN ---
HPI - Extremity Injury (Lower) General Chief Complaint: Extremity Injury, Lower Stated Complaint: L Knee Pain Time Seen by Provider: 04/05/25 01:54 Source: patient Mode of arrival: Wheelchair History of Present Illness HPI Narrative: 79-year-old male complaining of severe left knee pain after taking a knee down onto the cement in trying to get back up suddenly. He did not fall but ever since trying to get back up Related Data Home Medications ?Medication ?Instructions ?Recorded ?Confirmed nitroglycerin 0.4 mg sublingual 0.4 mg sublingual Q5-15M PRN Angina 01/17/18 11/09/23 tablet omeprazole 20 mg capsule,delayed 20 mg PO DAILY 10/05/22 11/09/23 release Previous Rx's ?Medication ?Instructions ?Recorded albuterol sulfate 90 mcg/actuation 2 puff inhalation Q4-6H PRN 12/31/17 aerosol inhaler shortness of breath #8.5 grams gabapentin 300 mg capsule 300 mg PO BEDTIME #90 caps 06/04/22 allopurinol 100 mg tablet 100 mg PO DAILY #90 tabs 09/10/22 fluticasone propionate 50 2 spray intranasal BEDTIME #48 10/05/22 mcg/actuation nasal grams spray,suspension docusate sodium 100 mg capsule 100 mg PO BID #30 caps 11/20/22 (Colace) wheat dextrin 3 gram/3.8 gram oral 3 g PO BID #144 grams 11/20/22 powder (Benefiber Sugar Free (dextrin)) Allergies Allergy/AdvReac Type Severity Reaction Status Date / Time Penicillins Allergy almost Verified 04/05/25 01:19 at 2 years old hydromorphone AdvReac Dizziness Verified 04/05/25 01:19 Sulfa (Sulfonamide AdvReac rash Verified 04/05/25 01:19 Antibiotics) Review of Systems Review of Systems ROS Unobtainable: All systems reviewed & are unremarkable except as noted in HPI and below Patient History Medical History Interstitial lung disease Diffusion capacity of lung (dl), decreased COVID-19 Essential hypertension Palpitations History of DVT (deep vein thrombosis) (~09/2015) Mixed hyperlipidemia Paroxysmal atrial fibrillation Coronary artery disease GERD with stricture Surgical History Hx of shoulder surgery (05/2010) Status post aorto-coronary artery bypass graft (~11/2015) Family History Father Alzheimer's disease Mother No problems noted. Social History marital status: household members: spouse lives independently: Yes occupational status: previously employed Smoking Status: Never smoker alcohol intake: never substance use type: does not use Smoking Status: Never smoker alcohol intake frequency: 0-2 drinks per day Exam Narrative Exam Narrative: General: Patient appears to be in no acute distress, acting appropriately Head: normocephalic, atraumatic, HEENT: Pupils equal round reactive, eyes tracking well, neck supple, no JVD Heart: regular rate and rhythm, no murmurs, rubs, or gallops heard Lungs: clear to auscultation, no adventitious sounds Abdomen: soft , nontender, nondistended, positive bowel sounds Neurological: no focal neurological signs, moving all extremities well, alert and oriented x3, Psych: good judgment ,good insight, mood is normal. left knee pain with palpation all over the entire knee. Abelino and Macho test negative. Initial Vital Signs Initial Vital Signs: Vital Signs Temperature 97.7 F 04/05/25 01:19 Pulse Rate 61 04/05/25 01:19 Respiratory Rate 18 04/05/25 01:19 Blood Pressure 115/64 04/05/25 01:19 Pulse Oximetry 97 04/05/25 01:19 Oxygen Delivery Method Room Air 04/05/25 01:19 Procedures Joint Aspiration Joint Asp./Inject. 1: Side of body: left Joint Aspirated: knee Amount of anesthesia used (mL): 5 Needle Size Used: Other (27) Amount of medication injected (mL): 1 (kenalog ) Patient Tolerated Procedure: Well and No complications Course Orders Ordered: ED Orders 04/05/25 01:25 XR knee LT 3V Stat Discontinued Medications Hydrocodone Bitart/Acetaminophen (Hydrocodone/Acet 5/325 Prepack) 1 bottle MISC DIRECTED ONE Stop: 04/05/25 03:45 Last Admin: 04/05/25 03:50 Dose: 1 bottle Documented By: MUNIR Oxycodone/Acetaminophen (Oxycodone/Apap 5/325 Prepack) 1 bottle MISC DIRECTED ONE Stop: 04/05/25 03:42 Triamcinolone (Triamcinolone 40 Mg/Ml Vial) 40 mg INTRA-DESTINY NOW ONE Stop: 04/05/25 03:06 Last Admin: 04/05/25 03:07 Dose: 40 mg Documented By: DEJAN Vital Signs Vital signs: Vital Signs - 8 hr 04/05/25 01:19 04/05/25 04:04 Temperature 97.7 F Pulse Rate 61 60 Respiratory Rate 18 16 Blood Pressure 115/64 110/58 L Pulse Oximetry 97 95 Oxygen Delivery Method Room Air Room Air MDM - Extremity Injury (Lower) Imaging Data Extremity x-ray #1: Radiologist's Impression: No acute bony abnormality or significant effusion. [facility] Narrative Medical decision making narrative: 79-year-old male presents with pain in the left knee after trying to get up after taking a knee on the cement. Patient has no other traumatic injury to the knee. It was decided to do a knee injection with Kenalog 1 cc and 5 cc of 2% lidocaine. Patient tolerated procedure well and had significant relief of pain immediately after. Patient also given take-home packet of [employer] and will [facility] and further evaluation. Advised to follow up sooner if pain worsens. Discharge Plan Departure Patient Disposition: Home Clinical Impression: Acute pain of left knee Instructions: DI for Knee Pain Activity Restrictions/Additional Instructions: Use pain meds as prescribed as needed. Follow up sooner if pain worsens. May need to get an MRI of the left knee to further evaluate the issue. Prescriptions: No Action albuterol sulfate 90 mcg/actuation HFA aerosol inhaler 2 puff INHALATION Q4-6H PRN (Reason: shortness of breath) Qty: 8.5 1RF nitroglycerin 0.4 mg tablet, sublingual 0.4 mg SL Q5-15M PRN (Reason: Angina) Patient Comments: never taken allopurinol 100 mg tablet 100 mg PO DAILY Qty: 90 1RF fluticasone propionate 50 mcg/actuation spray,suspension 2 spray NASAL BEDTIME Qty: 48 3RF Rx Instructions: administer into each nostril omeprazole 20 mg capsule,delayed release(DR/EC) 20 mg PO DAILY gabapentin 300 mg capsule 300 mg PO BEDTIME Qty: 90 3RF Benefiber Sugar Free (dextrin) 3 gram/3.8 gram powder 3 g PO BID Qty: 144 0RF Rx Instructions: mix into at least 4 oz water or juice before administering docusate sodium [Colace] 100 mg capsule 100 mg PO BID Qty: 30 0RF Referrals: Devante Mcgill MD [Primary Care Provider, Internal Medicine] Stand Alone Forms: Patient Portal/API
[2025-04-05] MEDS: TRIAMCINOLONE 40 MG/ML VIAL INTRA-ARTI (03:07)
[2025-04-05 04:04] VITALS: BP 110/58; PULSE 60; RESP 16; O2SAT 95
== END 2025-04-05 04:05 | disposition home or self-care (01) ==
PROVIDERS: Emergency Provider Family Medicine; PCP Internal Medicine
DX: M25.562 Pain in left knee (principal)
CPT/HCPCS: 20610; 73562; 99281; 99283